=== PATIENT | male | born 1980 | race Caucasian/White ===

== ENCOUNTER 2018-06-20 16:52 | Emergency (ER) | payer OTHER ==
[~2018-06-20] VITALS: Ht 180.3 cm; Wt 92.7 kg
[2018-06-20 17:00] VITALS: BP 157/79; TEMP 97.8
[2018-06-20] MEDS ORDERED: NORCO 325 MG-51 TAB PO (18:44)
[2018-06-20 19:18] VITALS: PULSE 82
== END 2018-06-20 19:19 | disposition home or self-care (01) ==
LOC: COL.ER 16:52
DX: S52.022A Displaced fracture of olecranon process without intraarticular extension of left ulna, initial encounter for closed fracture (principal); X50.0XXA Overexertion from strenuous movement or load, initial encounter; Y92.89 Other specified places as the place of occurrence of the external cause
CPT/HCPCS: J1885; Q4050

== ENCOUNTER 2018-10-03 08:00 | Outpatient (RCR) | payer OTHER ==
[~2018-10-03 08:00] MED LIST: NORCO 325 MG-51 TAB PO
== END 2018-11-02 | disposition home or self-care (01) ==
LOC: MKS.ESL.PT
DX: S52.125D Nondisplaced fracture of head of left radius, subsequent encounter for closed fracture with routine healing (principal); S42.402D Unspecified fracture of lower end of left humerus, subsequent encounter for fracture with routine healing; S52.002D Unspecified fracture of upper end of left ulna, subsequent encounter for closed fracture with routine healing; S52.045D Nondisplaced fracture of coronoid process of left ulna, subsequent encounter for closed fracture with routine healing; X58.XXXD Exposure to other specified factors, subsequent encounter

== ENCOUNTER → 2019-01-05 | Outpatient (CLI) | payer OTHER | LOC: COL.RAD 13:15 | DX: M19.022 Primary osteoarthritis, left elbow (principal) | CPT/HCPCS: A9585; Q9967 ==

== ENCOUNTER 2019-01-27 15:00 | Outpatient (RCR) | payer OTHER | END 2019-02-01 | disposition still patient (30) | LOC: MKS.ESL.PT | DX: S52.045A Nondisplaced fracture of coronoid process of left ulna, initial encounter for closed fracture (principal) ==

== ENCOUNTER 2019-02-24 15:45 | Outpatient (RCR) | payer OTHER | END 2019-05-05 | LOC: MKS.ESL.PT | DX: S52.045A Nondisplaced fracture of coronoid process of left ulna, initial encounter for closed fracture (principal) ==